=== PATIENT | female | born 1950 | race Caucasian/White ===

== ENCOUNTER 2018-09-27 10:30 | Emergency (ER) | payer OTHER ==
--- NOTE | 2018-09-27 10:35 | EDPHY ---
H & P Time Seen by Provider: 09/27/18 10:35 HPI/ROS: CHIEF COMPLAINT: Abdominal pain HISTORY OF PRESENT ILLNESS: Patient had dysuria a week ago and was seen in the office at [facility] on Wednesday. 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 At that time she felt a prescription for nitrofurantoin and started on that for which we she was told was a UTI. Over the last 12 hr she developed bilateral lower abdominal pain radiating to her back which is severe. She describes having syncope or near-syncope 6 or 7 times last night at home. She is very thirsty. Pain is not better worse with anything. Not associated with vomiting or diarrhea. Her dysuria is better. REVIEW OF SYSTEMS: Eye: no change in vision ENT: no sore throat Cardiac: no chest pain or syncope Pulmonary: no cough or SOB Abdomen: HPI Musculoskeletal: HPI Skin: no rash Neuro: no headache Constitutional: no fever : HPI A comprehensive 10 point review of systems is otherwise negative aside from elements mentioned in the history of present illness. PAST MEDICAL HISTORY: Includes lupus and hypertension Social history: Primary care at [facility], , lives in [facility] General Appearance: Alert and conversant, cooperative. Eyes: No scleral icterus. ENT, Mouth: Dry mucous membranes. Respiratory: Normal respiratory effort, breath sounds equal, lungs are clear to auscultation. Cardiovascular: Regular rate and rhythm. Gastrointestinal: Bilateral lower abdominal tenderness but no rebound or guarding. Neurological: Alert, face symmetric, normal motor and sensory in extremities. Skin: Warm and dry, no rashes. Musculoskeletal: Bilateral CVA tenderness. Psychiatric: Not agitated. Emergency Department course/MDM: Plan for IV hydration, labs. Patient received pain medication by EMS and feels better now, declined additional. CT scanning to evaluate for intra-abdominal surgical process or perinephric abscess, discussed and consented. I-STAT creatinine at 11:00 a.m. Is 0.8, ordered. Negative abdominal pelvic CT per Dr. Wilhelm at 12:10 p.m. 1230: discussed with patient, admit for continued symptoms, further evaluation serial examinations, she is not comfortable being discharged. No definitive diagnosis at this time. Urine not obtained here. Case discussed with the [facility] physician Dr. Marquez at [phone]. The accepting physician is Dr. Acosta. Risks, benefits, and alternatives discussed with the patient and consented. The patient will be transferred to [facility] via ALS because she is a [facility] patient, in stable condition. This is a patient requested transfer. Constitutional: Initial Vital Signs Temperature (C) 36.9 C 09/27/18 10:38 Heart Rate 86 09/27/18 10:38 Respiratory Rate 18 09/27/18 10:38 Blood Pressure 117/62 09/27/18 10:38 O2 Sat (%) 98 09/27/18 10:38 O2 Delivery Mode Room Air Allergies/Adverse Reactions: caffeine [From Cafergot] Allergy (Verified 09/27/18 10:38) ergotamine [From Cafergot] Allergy (Verified 09/27/18 10:38) hydroxychloroquine [From Plaquenil] Allergy (Verified 09/27/18 10:38) Sulfa (Sulfonamide Antibiotics) Allergy (Verified 09/27/18 10:38) Home Medications: Medication Instructions Recorded Acyclovir 09/27/18 Amlodipine Besylate 09/27/18 Clobetasol 0.05% 09/27/18 Levothyroxine 09/27/18 Nitrofurantoin 09/27/18 Oxybutynin 09/27/18 Phentermine HCl 09/27/18 Pravastatin Sodium 09/27/18 Prednisone 09/27/18 Sertraline HCl 09/27/18 azaTHIOprine 09/27/18 traZODone 09/27/18 Medical Decision Making - Diagnostics EKG Interpretation: 12-lead EKG interpreted by me; official reading is in computer system. My interpretation is sinus rhythm with left anterior fascicular block rate 86. Low voltage in the precordial leads. Imaging Results: Imaging Impressions Abdomen CT 09/27/18 11:00 Impression: 1. Normal urinary tract. No hydronephrosis, ureteral calculi, perinephric inflammatory process or evidence of pyelonephritis. 2. Mild constipation and sigmoid diverticulosis. No acute diverticulitis. 3. Minimal biliary dilation is likely patient's postcholecystectomy baseline. No common bile duct stone or pancreatic mass. 4. Severe degenerative disk disease at L1-L2. No paraspinal inflammatory process. Findings discussed with Emergency Department physician, Wallace Carter on 09/27/2018 , 12:14. Imaging: Discussed imaging studies w/ call manager Radiologist Differential Diagnosis: Differential considered including but not limited to bowel obstruction, diverticulitis, pyelonephritis, perinephric abscess, renal colic, appendicitis - Data Points Laboratory Results: Laboratory Results 09/27/18 10:47 09/27/18 10:47 09/27/18 09/27/18 09/27/18 10:49 10:47 10:47 WBC 14.33 10^3/uL H 10^3/uL (3.80-9.50) RBC 4.53 10^6/uL 10^6/uL (4.18-5.33) Hgb 13.7 g/dL g/dL (12.6-16.3) POC Hgb 14.3 gm/dL gm/dL (12.6-16.3) Hct 40.5 % % (38.0-47.0) POC Hct 42 % % (38-47) MCV 89.4 fL fL (81.5-99.8) MCH 30.2 pg pg (27.9-34.1) MCHC 33.8 g/dL g/dL (32.4-36.7) RDW 13.6 % % (11.5-15.2) Plt Count 147 10^3/uL L 10^3/uL (150-400) MPV 8.9 fL fL (8.7-11.7) Neut % (Auto) 95.7 % H % (39.3-74.2) Lymph % (Auto) 0.4 % L % (15.0-45.0) Harvey % (Auto) 2.4 % L % (4.5-13.0) Eos % (Auto) 0.6 % % (0.6-7.6) Baso % (Auto) 0.1 % L % (0.3-1.7) Nucleat RBC Rel Count 0.0 % % (0.0-0.2) Absolute Neuts (auto) 13.71 10^3/uL H 10^3/uL (1.70-6.50) Absolute Lymphs (auto) 0.06 10^3/uL L 10^3/uL (1.00-3.00) Absolute Monos (auto) 0.34 10^3/uL 10^3/uL (0.30-0.80) Absolute Eos (auto) 0.09 10^3/uL 10^3/uL (0.03-0.40) Absolute Basos (auto) 0.01 10^3/uL L 10^3/uL (0.02-0.10) Absolute Nucleated RBC 0.00 10^3/uL 10^3/uL (0-0.01) Immature Gran % 0.8 % % (0.0-1.1) Immature Gran # 0.11 10^3/uL H 10^3/uL (0.00-0.10) RBC/WBC/PLT Morphology TNP Platelet Estimate TNP POC Sodium 141 mEq/L mEq/L (135-145) Sodium 137 mEq/L mEq/L (135-145) POC Potassium 3.9 mEq/L mEq/L (3.3-5.0) Potassium 4.0 mEq/L mEq/L (3.5-5.2) POC Chloride 104 mEq/L mEq/L (97-110) Chloride 108 mEq/L mEq/L (97-110) Carbon Dioxide 21 mEq/l L mEq/l (22-31) POC Total CO2 21 mEq/L L mEq/L (22-31) Anion Gap 8 mEq/L mEq/L (6-14) POC BUN 16 mg/dL mg/dL (7-23) BUN 18 mg/dL mg/dL (7-23) Creatinine 0.8 mg/dL mg/dL (0.6-1.0) POC Creatinine 0.8 mg/dL mg/dL (0.6-1.0) Estimated GFR > 60 Glucose 101 mg/dL H mg/dL (70-100) POC Glucose 106 mg/dL H mg/dL (70-100) Calcium 8.5 mg/dL mg/dL (8.5-10.4) Total Bilirubin 0.9 mg/dL mg/dL (0.1-1.4) Conjugated Bilirubin 0.4 mg/dL mg/dL (0.0-0.5) Unconjugated Bilirubin 0.5 mg/dL mg/dL (0.0-1.1) AST 124 IU/L H IU/L (14-46) ALT 77 IU/L H IU/L (9-52) Alkaline Phosphatase 47 IU/L IU/L (38-126) Total Protein 5.5 g/dL L g/dL (6.3-8.2) Albumin 3.4 g/dL L g/dL (3.5-5.0) Lipase 54 IU/L IU/L (23-300) Medications Given: Discontinued Medications Sodium Chloride (Ns) 1,000 mls @ 0 mls/hr IV EDNOW ONE; Wide Open PRN Reason: Protocol Stop: 09/27/18 10:45 Last Admin: 09/27/18 10:49 Dose: 1,000 mls Point of Care Test Results: Chemistry 09/27/18 10:49 POC Sodium 141 mEq/L mEq/L (135-145) POC Potassium 3.9 mEq/L mEq/L (3.3-5.0) POC Chloride 104 mEq/L mEq/L (97-110) POC Total CO2 21 mEq/L L mEq/L (22-31) POC BUN 16 mg/dL mg/dL (7-23) POC Creatinine 0.8 mg/dL mg/dL (0.6-1.0) POC Glucose 106 mg/dL H mg/dL (70-100) ISTAT H&H 09/27/18 10:49 POC Hgb 14.3 gm/dL gm/dL (12.6-16.3) POC Hct 42 % % (38-47) Departure - Departure Disposition: Acute Care [facility] Clinical Impression: Abdominal pain Qualifiers: Abdominal location: generalized Qualified Code(s): R10.84 - Generalized abdominal pain Condition: Good Referrals: Patient,NotPresent [Unknown] - As per Instructions
[2018-09-27] MEDS ORDERED: NS 1,000 ML IV ONE (10:44)
[2018-09-27 10:59] LABS: PLATELET COUNT 147 10^3/uL (150-400)
--- NOTE | 2018-09-27 10:59 | CPEKG ---
Test Reason : OPEN Blood Pressure : / mmHG Vent. Rate : 086 BPM Atrial Rate : 087 BPM P-R Int : 176 ms QRS Dur : 095 ms QT Int : 410 ms P-R-T Axes : 024 -49 108 degrees QTc Int : 491 ms Sinus rhythm Left anterior fascicular block Low voltage, precordial leads Consider anterior infarct Nonspecific T abnormalities, lateral leads Confirmed by Steve Bravo ([id number]) on 09/27/2018 10:58:36 AM Referred By: STEVE BRAVO Confirmed By:Steve Bravo
[2018-09-27] MEDS ORDERED: IOHEXOL 300 mgI/ML (OMNIPAQUE) 150 ML BTL IV ONE (11:04)
[2018-09-27 14:15] VITALS: BP 100/64
== END 2018-09-27 14:34 | disposition short-term general hospital (02) ==
DX: R10.84 Generalized abdominal pain (principal); E86.9 Volume depletion, unspecified; I10 Essential (primary) hypertension; D68.62 Lupus anticoagulant syndrome
CPT/HCPCS: 74177; 93005; 96360; 99285; Q9967; 82435-PO; 82565-PO; 82947-PO; 84132-PO; 84295-PO; 84520-PO; 85014-ER